=== PATIENT | female | born 1935 | race Caucasian/White ===

== ENCOUNTER 2022-01-06 08:57 | Emergency (ER) | payer MEDICAID, SELFPAY ==
[2022-01-06 09:04] VITALS: BP 143/83; PULSE 68; RESP 18; TEMP 36.6; O2SAT 98; BMI 21.4
[2022-01-06 09:17] LABS: MANUAL DIFF FLAG NO
[2022-01-06 09:19] LABS: Basophils Absolute Auto 0.1 X10*3/uL (0.0-0.2); Basophils Percent Auto 1.3 % (0-2); Eosinophils Absolute Auto 0.2 X10*3/uL (0.0-0.4); Eosinophils Percent Auto 3.4 % (0-4); Hematocrit 34.5 % (37.0-47.0); Hemoglobin 11.4 g/dl (12.0-16.0); Imm Gran Abs Auto 0.02 X10*3/uL (0.00-0.03); Imm Gran Pct Auto 0.4 % (0.0-0.4); Lymphocytes Absolute Auto 1.2 X10*3/uL (1.2-4.9); Lymphocytes Percent Auto 26.5 % (20-40); Mean Corpuscular Hemoglobin 30.5 pg (27.0-33.0); Mean Corpuscular Volume 92.2 fL (80.0-98.0); Monocytes Absolute Auto 0.4 X10*3/uL (0.1-1.2); Monocytes Percent Auto 9.9 % (2-11); Neutrophils Absolute Auto 2.6 x10*3/uL (2.0-8.3); Neutrophils Percent Auto 58.5 % (45-73); Platelet Count 151 X10*3/uL (160-400); Red Blood Count 3.74 X10*6/uL (4.20-5.50); Red Cell Distribution Width 14.6 % (11.0-16.0); White Blood Count 4.5 X10*3/uL (4.8-10.8)
[2022-01-06 09:35] LABS: Anion Gap 15 (12-20); Blood Urea Nitrogen 24 mg/dL (9-16); Calcium 9.3 mg/dL (8.4-10.2); Carbon Dioxide 25 mmol/L (22-29); Chloride 103 mmol/L (96-108); Creatinine Clr Calc Pharmacy 26.4; Estimated Glomerular Filt Rate 39; Glucose Random 105 mg/dL (60-115); Potassium 4.7 mmol/L (3.3-5.1); Sodium 138 mmol/L (135-145)
== END 2022-01-06 14:45 | disposition left against medical advice (07) ==
PROVIDERS: Emergency Provider Emergency Medicine
DX: R41.82 Altered mental status, unspecified (principal); R35.0 Frequency of micturition
CPT/HCPCS: 36415; 80048; 85025; 99281; 99283

== ENCOUNTER 2022-02-17 10:28 | Emergency (ER) | payer MEDICAID, SELFPAY ==
[2022-02-17 11:12] VITALS: BP 145/101; PULSE 54; RESP 16; TEMP 35.9; O2SAT 96; BMI 21.2
--- NOTE | 2022-02-17 13:51 | ED.FEMALEGU ---
HPI - Female Genitourinary General Chief complaint: Urogenital-Female Stated complaint: Prolapsed uterus Time Seen by Provider: 02/17/22 13:26 Source: patient and family History of Present Illness HPI Narrative: history provided by the patient's granddaughter in-law who also helps interpret. Patient with a history of dementia who has been in the [place] for the past 3 months. Presents to the emergency department today secondary to was believed to be a uterine prolapse. Her granddaughter enlarged also or airline mechanic noticed a protrusion from her vaginal area while helping her shower yesterday. Patient complains of some discomfort in the area. Unknown if this has happened previously. She does not have any physicians in the area. As far she knows she has never seen Gynecology in her country. She has had 2 full-term vaginal deliveries in her lifetime. No prior abdominal surgeries. No C-sections. Other symptoms are strong smelling urine. No fevers or chills. No nausea vomiting diarrhea or constipation Related Data Allergies Allergy/AdvReac Type Severity Reaction Status Date / Time No Known Allergies Allergy Verified 01/06/22 09:08 Review of Systems Constitutional: Comments: no fevers Respiratory: Comments: no dyspnea Gastrointestinal: Comments: no abdominal pain Genitourinary: Comments: strong smelling urine. Question uterine prolapse Neurologic: Comments: History of dementia [facility] Social History Social History Advance Directives: No Advance Directives Information Provided: Yes Physical Exam Vital Signs: Vital Signs: Last Vital Signs Temp 96.6 F L 02/17/22 11:12 Pulse 54 02/17/22 11:12 Resp 16 02/17/22 11:12 BP 145/101 H 02/17/22 11:12 Pulse Ox 96 02/17/22 11:12 O2 Del Method 02/17/22 11:12 BMI result Body Mass Index 21.2 Const: Other: awake and alert. No acute distress. Afebrile. Moderately hypertensive. Resp: Other: no respiratory distress GI: Other: Soft nontender nondistended : Other: external exam shows no external prolapse at this time. Cervix can be seen at the vaginal vault however. Consistent with intermittent prolapse. Skin: Other: Warm pink and dry without rash Neuro: Other: no obvious focal neuro deficits Course Course Course Narrative: patient unable to supply urine sample. Her caregiver prefers to follow-up as an outpatient at this time. Would prefer not have straight catheterization. As she is otherwise stable, I think this is a reasonable plan. Medical Decision Making Medical Decision Making MDM Narrative: likely intermittent uterine prolapse. Reduced at the moment. Foul-smelling urine, possible urinary tract infection. Will check urinalysis. No reduction of prolapsed needed at the moment. Will discharge with outpatient follow-up for gynecology. Discharge Plan Discharge Clinical Impression: History of uterine prolapse Patient Disposition: Home, Self-Care
== END 2022-02-17 15:02 | disposition home or self-care (01) ==
PROVIDERS: Emergency Provider Emergency Medicine
DX: N81.4 Uterovaginal prolapse, unspecified (principal)
CPT/HCPCS: 99282